=== PATIENT | male | born 1950 | race Caucasian/White ===

== ENCOUNTER 2018-08-28 20:03 | Observation (INO) | payer OTHER ==
--- NOTE | 2018-08-28 20:40 | RAD REPORT ---
EXAM DESCRIPTION: CT - CTHCSPWOC - 08/28/2018 8:18 pm CLINICAL HISTORY: Headache, head and neck injury COMPARISON: None. TECHNIQUE: Axial 5 mm thick images of the head were obtained. Axial 2 mm thick images of the cervic al spine were obtained with sagittal and coronal reconstruction images generated and reviewed. All CT scans are performed using dose optimization technique as appropriate and may include automated exposure control or mA/KV adjustment according to patient size. FINDINGS: No intracranial hemorrhage, mass, edema or acute intracranial finding. No suspicion for acute infarct ion. Atrophy and chronic ischemic changes are minimal. Ventricles are normal. Mastoid air cells and p aranasal sinuses are clear. No globe or orbit abnormality seen. Posterior scalp hematoma is present. Cervical body height and alignment are normal. C4-5 and C5-6 disc space narrowing present. Left russell inal encroachment at C2-3 from facet hypertrophy. Significant left C3-4 foraminal stenosis from facet hypertrophy. Bilateral C4-5 and C5-6 foraminal encroachment. Right central canal spurring at this le silvana causes stenosis of the right lateral central canal. No fracture or acute bony abnormality. Centra l canal detail is inherently limited. No paraspinal mass or hematoma. IMPRESSION: No hemorrhage, edema or acute intracranial finding. Patient has a posterior scalp hemato ma with underlying bone intact. Cervical spine degenerative changes are present with no fracture or acute finding. Spinal stenosis suspected at C5-6 with multilevel foraminal stenosis.
[2018-08-28 20:44] LABS: Urine Blood NEGATIVE (NEG); Urine Glucose NEGATIVE (NEG); Urine Protein NEGATIVE (NEG); Urine Specific Gravity 1.005 (1.005-1.030); Urine pH 6.5 (5.0-7.0)
[2018-08-28] MEDS ORDERED: THIAMINE 200 MG/2 ML INJ ONE (20:44)
[2018-08-28] MEDS ORDERED: MAGNESIUM SULFATE 1 gm IVPB 1 GM/100 ML BAG IV ONE (20:45)
[2018-08-28] MEDS ORDERED: TETANUS & DIPHTHERIA TOX,ADULT 0.5 ML VIAL ONE (20:45)
[2018-08-28] MEDS ORDERED: NA CHLORIDE 0.9% 1,000 ML ONE (20:45)
[2018-08-28 20:58] LABS: Absolute Lymphocytes (CBC) 1.4 K/uL (0.7-4.9); Absolute Monocytes 0.7 K/uL (0.1-1.3); Absolute Neutrophil 3.7 K/uL (1.8-8.0); Basophils % 0.9 % (0-1.3); Eosinophils % 1.8 % (0-4.4); Hematocrit 35.4 % (39.6-49.0); Lymphocytes % 22.9 % (15.3-44.8); MPV 7.4 fL (7.6-11.3); Monocytes % 11.2 % (3.3-12.3); RBC Red Blood Cell Count 3.71 M/uL (4.33-5.43)
[2018-08-28 21:02] LABS: Protime INR 0.96
[2018-08-28 21:04] LABS: Barbiturates NEGATIVE (NEGATIVE); Benzodiazepines NEGATIVE (NEGATIVE); Cocaine NEGATIVE (NEGATIVE); METHAMPHETAM NEGATIVE (NEGATIVE); Methadone NEGATIVE (NEGATIVE); Opiates NEGATIVE (NEGATIVE); Phencyclidine NEGATIVE (NEGATIVE); THC Cannibis NEGATIVE (NEGATIVE)
[2018-08-28 21:27] LABS: ALT/SGPT 52 U/L (12-78); AST/SGOT 33 U/L (15-37); Alkaline Phosphatase 59 U/L (45-117); BUN Blood Urea Nitrogen 10 mg/dL (7-18); Bicarbonate 28 mmol/L (21-32); Bilirubin Direct 0.2 mg/dL (0-0.2); Bilirubin Total 0.4 mg/dL (0.2-1.0); Glucose Level 106 mg/dL (74-106); NT PRO-BNP 548 pg/mL (<125); Potassium 4.1 mmol/L (3.5-5.1); Protein, Total 6.9 g/dL (6.4-8.2); Sodium Level 124 mmol/L (136-145); Troponin (Emerg Dept Use Only) < 0.02 ng/mL (0.0-0.045)
--- NOTE | 2018-08-28 21:48 | ER ---
Nurse's Notes [facility] Name: Catalino Montes Age: 67 yrs Sex: Male : 1950 Arrival Date: 08/28/2018 Time: 20:05 Bed 7 Private MD: Diagnosis: Fall due to bumping against object;Superficial injury of head;Alcohol abuse with intoxication;Alcohol abuse;Hypo-osmolality and hyponatremia Presentation: 08/28 20:05 Acuity: ELLIOTT 2 aa1 20:05 Method Of Arrival: EMS: [facility] aa1 20:05 Presenting complaint: Patient states: he was walking out from [employer] and tripped on aa1 the curb causing him to fall and hit the back of his head on the concrete. Bystanders report + LOC. Denies use of blood thinners. Denies N/V. Denies pain or any other injury. Hematoma noted to back of head with bleeding controlled. A\T\Ox4. Reports he has had about 5-6 beers this evening. Transition of care: patient was not received from another setting of care. Onset of symptoms was August 28, 2018. Risk Assessment: Do you want to hurt yourself or someone else? Patient reports no desire to harm self or others. Initial Sepsis Screen: Does the patient meet any 2 criteria? No. Patient's initial sepsis screen is negative. Does the patient have a suspected source of infection? No. Patient's initial sepsis screen is negative. Care prior to arrival: Glucose check: 130. 20:24 Mechanism of Injury: Fall from standing position. Trauma event details: Injury occurred lp1 in the [facility], Injury occurred: in a public building. Injury occurred: August 28, 2018. Trauma Activation: Alert Physician: ED Physician; Name: Dr. Harris; Notified At: 19:58; Arrived At: 19:58 Physician: General Surgeon; Name: N/A; Notified At: 19:58; Arrived At: Physician: Radiology; Name: Corey Bautista Kathy; Notified At: 19:58; Arrived At: 20:00 Physician: Respiratory; Name: Samir; Notified At: 19:58; Arrived At: 20:03 Physician: Lab; Name: N/A; Notified At: 19:58; Arrived At: Historical: - Allergies: 23:07 No Known Allergies; aa1 - Home Meds: 20:16 losartan oral oral [Active]; unknown BP med [Active]; unknown diabetes med [Active]; aa1 - PMHx: 20:16 Diabetes - NIDDM; High Cholesterol; Hypertension; GERD; aa1 - PSHx: 20:16 None; aa1 - Immunization history:: Last tetanus immunization: unknown. - Social history:: Smoking status: Patient/guardian denies using tobacco. - Immunization history: Last tetanus immunization: unknown. - Ebola Screening: : No symptoms or risks identified at this time. - Family history:: not pertinent. Screenin:05 Abuse screen: Denies threats or abuse. Denies injuries from another. Nutritional aa1 screening: No deficits noted. Tuberculosis screening: No symptoms or risk factors identified. Fall Risk Fall in past 12 months (25 points). Primary Survey: 20:05 NO uncontrolled hemorrhage observed. A: The patient is alert. Airway: patent, No aa1 supplemental oxygen in use on arrival. Oral cavity: clear. Breathing/Chest: Respiratory pattern: regular, Respiratory effort: spontaneous, unlabored, Breath sounds: clear, bilaterally. Chest inspection: symmetrical rise and fall of the chest. Circulation: Heart tones present. Pulses: palpable right radial artery and left radial artery. Skin color: pink, Skin temperature: warm. Disability Alert. Exposure/Environment: All clothing and personal items were removed. Forensic evidence collection is not deemed to be indicated at this time. Items placed in patient belonging bag. There is no evidence of uncontrolled external bleeding. Obvious injury(ies) are noted at this time: hematoma noted to back of head with no active bleeding noted A warming method has been applied: A warm blanket has been provided to the patient. 21:05 Reassessment Airway Airway Patent Breathing/Chest Respiratory pattern Regular aa1 Respiratory effort Spontaneous Unlabored Breath sounds Clear Chest inspection Symmetrical Circulation [place] Level Temperature Warm Disability Alert. Secondary Survey: 20:05 HEENT: Head Other hematoma noted to back of head. Gastrointestinal: No deficits noted. aa1 : No signs and/or symptoms were reported regarding the genitourinary system. Musculoskeletal: No signs and/or symptoms reported regarding the musculoskeletal system. Assessment: 20:07 General: Appears in no apparent distress. comfortable, Behavior is calm, cooperative, aa1 appropriate for age. Pain: Denies pain. Neuro: Level of Consciousness is awake, alert, obeys commands, Oriented to person, place, time, situation, Moves all extremities. Speech is normal, Pupils are PERRLA, Denies blurred vision dizziness, headache diplopia. Cardiovascular: Heart tones S1 S2 present Rhythm is regular. Respiratory: Airway is patent Respiratory effort is even, unlabored, Respiratory pattern is regular, symmetrical, Breath sounds are clear bilaterally. GI: No signs and/or symptoms were reported involving the gastrointestinal system. Abd is soft and non tender X 4 quads. : No signs and/or symptoms were reported regarding the genitourinary system. EENT: No signs and/or symptoms were reported regarding the EENT system. Derm: Skin is intact, is healthy with good turgor, Skin is pink, warm \T\ dry. Musculoskeletal: Circulation, motion, and sensation intact. Capillary refill < 3 seconds, Range of motion: intact in all extremities. Injury Description: Head injury sustained to scalp is closed, had loss of consciousness, was sustained 30-60 minutes ago. 20:28 Reassessment: Patient appears in no apparent distress at this time. Patient is alert, aa1 oriented x 3, equal unlabored respirations, skin warm/dry/pink. Pt back from CT. 21:30 Reassessment: Patient appears in no apparent distress at this time. Patient and/or aa1 family updated on plan of care and expected duration. Pain level reassessed. Patient is alert, oriented x 3, equal unlabored respirations, skin warm/dry/pink. Awaiting provider reassessment. 22:57 Reassessment: Patient appears in no apparent distress at this time. Patient and/or aa1 family updated on plan of care and expected duration. Pain level reassessed. Patient is alert, oriented x 3, equal unlabored respirations, skin warm/dry/pink. Report given to Patrick Olivia RN. Vital Signs: 20:05 BP 165 / 105; Pulse 69; Resp 18; Temp 97.8; Pulse Ox 100% on R/A; Weight 101.15 kg; aa1 Height 5 ft. 10 in. (177.80 cm); Pain 0/10; 21:00 BP 134 / 80; Pulse 65; Resp 18; Temp 97.9; Pulse Ox 99% on R/A; Pain 0/10; aa1 22:00 BP 124 / 63; Pulse 70; Resp 18; Pulse Ox 100% on R/A; Pain 0/10; aa1 22:58 BP 120 / 66; Pulse 65; Resp 16; Temp 98.0; Pulse Ox 99% on R/A; Pain 0/10; aa1 20:05 Body Mass Index 32.00 (101.15 kg, 177.80 cm) aa1 Houston Coma Score: 20:05 Eye Response: spontaneous(4). Verbal Response: oriented(5). Motor Response: obeys aa1 commands(6). Total: 15. Trauma Score (Adult): 20:05 Eye Response: spontaneous(1); Verbal Response: oriented(1); Motor Response: obeys aa1 commands(2); Systolic BP: > 89 mm Hg(4); Respiratory Rate: 10 to 29 per min(4); Houston Score: 15; Trauma Score: 12 21:00 Eye Response: spontaneous(1); Verbal Response: oriented(1); Motor Response: obeys aa1 commands(2); Systolic BP: > 89 mm Hg(4); Respiratory Rate: 10 to 29 per min(4); Jaylon Score: 15; Trauma Score: 12 22:00 Eye Response: spontaneous(1); Verbal Response: oriented(1); Motor Response: obeys aa1 commands(2); Systolic BP: > 89 mm Hg(4); Respiratory Rate: 10 to 29 per min(4); Houston Score: 15; Trauma Score: 12 22:58 Eye Response: spontaneous(1); Verbal Response: oriented(1); Motor Response: obeys aa1 commands(2); Systolic BP: > 89 mm Hg(4); Respiratory Rate: 10 to 29 per min(4); Houston Score: 15; Trauma Score: 12 ED Course: 20:00 Patient maintains SpO2 saturation greater than 95% on room air. lp1 20:05 Patient arrived in ED. al2 20:05 Patient has correct armband on for positive identification. Placed in gown. Bed in low aa1 position. Call light in reach. Side rails up X2. Pulse ox on. NIBP on. Warm blanket given. 20:05 Arm band placed on left wrist. Patient placed in an exam room, on a stretcher. aa1 20:05 Thermoregulation: warm blanket given to patient. aa1 20:12 Homa Farias RN is Primary Nurse. aa1 20:[address] via stretcher. nj 20:18 CT Head C Spine In Process Unspecified. EDMS 20:19 CT completed. Patient tolerated procedure well. Patient moved back from CT. nj 20:19 Triage completed. aa1 20:21 Hector Harris MD is Attending Physician. ailin 20:44 Initial lab(s) drawn, by ED staff, sent to lab. Inserted saline lock: 20 gauge in left aa1 antecubital area, using aseptic technique. ,using aseptic technique. by arjun Almodovar Blood collected. 21:47 Breezy Guido MD is Hospitalizing Provider. ailin 22:06 No provider procedures requiring assistance completed. Patient admitted, IV remains in aa1 place. 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 Exp: aa1 08/16/2020. Lot #: [id number]. } Route: IM; Site: right deltoid; 21:51 Follow up: Response: No adverse reaction aa1 20:44 Drug: Magnesium Sulfate 1 grams Route: IVPB; Infused Over: 1 hrs; Site: left aa1 antecubital; 21:50 Follow up: IV Status: Completed infusion aa1 Intake: 21:49 IV: 1000ml (IV Fluid); Total: 1000ml. aa1 Output: 20:15 Urine: 850ml (Voided); Total: 850ml. aa1 21:49 Urine: 600ml (Voided); Total: 1450ml. aa1 Outcome: 21:48 Decision to Hospitalize by Provider. ailin 23:07 Admitted to Med/surg accompanied by [facility], via stretcher, room 229, with chart, Report aa1 called to Patrick Olivia RN 23:07 Condition: stable 23:07 Discharge instructions given to patient, family, Instructed on the need for admit, Demonstrated understanding of instructions. 23:07 Patient's length of stay was not longer than 2 hours. 23:10 Patient left the ED. aa1 Signatures: Dispatcher [employer] EDMS Homa Farias RN RN aa1 Hector Harris MD MD cha Pena, Laura, RN RN lp1 Emerson Sosa, Ciara gambino Corrections: (The following items were deleted from the chart) 20: 02:05 BP 165 / 105; Pulse 69bpm; Resp 18bpm; Pulse Ox 100% RA; Temp 97.8F; 101.15 kg; aa1 Height 5 ft. 10 in.; BMI: 32.0; Pain 0/10; aa1 02:05 Presenting complaint: Patient states: he was walking out from [employer] and aa1 tripped on the curb causing him to fall and hit the back of his head on the concrete. Bystanders report + LOC. Denies use of blood thinners. Denies N/V. Denies pain or any other injury. Hematoma noted to back of head with bleeding controlled. A\T\Ox4. Reports he has had about 5-6 beers this evening aa1 : 02:05 Transition of care: patient was not received from another setting of care. aa1 aa08 17: 02:05 Onset of symptoms was August 28, 2018 aa1 aa08 17: 02:05 Risk Assessment: Do you want to hurt yourself or someone else? Patient reports no aa1 desire to harm self or others. aa 02:05 Initial Sepsis Screen: Does the patient meet any 2 criteria? No. Patient's aa1 initial sepsis screen is negative. Does the patient have a suspected source of infection? No. Patient's initial sepsis screen is negative. aa 02:05 Care prior to arrival: Glucose check: 130 aa aa 02:05 Method Of Arrival: EMS: [facility] aa1 02:05 Acuity: ELLIOTT 2 aa1 02:05 Arm band placed on left wrist. Patient placed in an exam room, on a stretcher, aa1aa1 23:07 20:16 Allergies: Unable to obtain; aa1 aa1
--- NOTE | 2018-08-28 21:48 | EDPHYS ---
Physician Documentation [facility] Name: Catalino Montes Age: 67 yrs Sex: Male : 1950 Arrival Date: 08/28/2018 Time: 20:05 Bed 7 Private MD: ED Physician Hector Harris HPI: 08/28 20:30 This 67 yrs old Male presents to ER via EMS with complaints of Fall Injury. ailin 20:30 Details of fall: The patient fell from an upright position, while walking. Onset: The ailin symptoms/episode began/occurred just prior to arrival. Associated injuries: The patient sustained injury to the head. Severity of symptoms: At their worst the symptoms were mild, in the emergency department the symptoms are unchanged. The patient has experienced similar episodes in the past, several times. Historical: - Allergies: 23:07 No Known Allergies; aa1 - Home Meds: 20:16 losartan oral oral [Active]; unknown BP med [Active]; unknown diabetes med [Active]; aa1 - PMHx: 20:16 Diabetes - NIDDM; High Cholesterol; Hypertension; GERD; aa1 - PSHx: 20:16 None; aa1 - Immunization history:: Last tetanus immunization: unknown. - Social history:: Smoking status: Patient/guardian denies using tobacco. - Immunization history: Last tetanus immunization: unknown. - Ebola Screening: : No symptoms or risks identified at this time. - Family history:: not pertinent. ROS: 20:30 Constitutional: Negative for fever, chills, and weight loss, Eyes: Negative for injury, ailin pain, redness, and discharge, ENT: Negative for injury, pain, and discharge, Neck: Negative for injury, pain, and swelling, Cardiovascular: Negative for chest pain, palpitations, and edema, Respiratory: Negative for shortness of breath, cough, wheezing, and pleuritic chest pain, Abdomen/GI: Negative for abdominal pain, nausea, vomiting, diarrhea, and constipation, Back: Negative for injury and pain, : Negative for injury, bleeding, discharge, and swelling, MS/Extremity: Negative for injury and deformity, Skin: Negative for injury, rash, and discoloration, Psych: Negative for depression, anxiety, suicide ideation, homicidal ideation, and hallucinations, Allergy/Immunology: Negative for hives, rash, and allergies, Endocrine: Negative for neck swelling, polydipsia, polyuria, polyphagia, and marked weight changes. 20:30 Neuro: Positive for headache, of the left parietal area, right parietal area, left side of the back of head and right side of the back of head. Exam: 20:30 Constitutional: This is a well developed, well nourished patient who is awake, alert, ailin and in no acute distress. Eyes: Pupils equal round and reactive to light, extra-ocular motions intact. Lids and lashes normal. Conjunctiva and sclera are non-icteric and not injected. Cornea within normal limits. Periorbital areas with no swelling, redness, or edema. ENT: Nares patent. No nasal discharge, no septal abnormalities noted. Tympanic membranes are normal and external auditory canals are clear. Oropharynx with no redness, swelling, or masses, exudates, or evidence of obstruction, uvula midline. Mucous membranes moist. Neck: Trachea midline, no thyromegaly or masses palpated, and no cervical lymphadenopathy. Supple, full range of motion without nuchal rigidity, or vertebral point tenderness. No Meningismus. Chest/axilla: Normal chest wall appearance and motion. Nontender with no deformity. No lesions are appreciated. Cardiovascular: Regular rate and rhythm with a normal S1 and S2. No gallops, murmurs, or rubs. Normal PMI, no JVD. No pulse deficits. Respiratory: Lungs have equal breath sounds bilaterally, clear to auscultation and percussion. No rales, rhonchi or wheezes noted. No increased work of breathing, no retractions or nasal flaring. Abdomen/GI: Soft, non-tender, with normal bowel sounds. No distension or tympany. No guarding or rebound. No evidence of tenderness throughout. Back: No spinal tenderness. No costovertebral tenderness. Full range of motion. Male : Normal genitalia with no discharge or lesions. Skin: Warm, dry with normal turgor. Normal color with no rashes, no lesions, and no evidence of cellulitis. MS/ Extremity: Pulses equal, no cyanosis. Neurovascular intact. Full, normal range of motion. Neuro: Awake and alert, GCS 15, oriented to person, place, time, and situation. Cranial nerves II-XII grossly intact. Motor strength 5/5 in all extremities. Sensory grossly intact. Cerebellar exam normal. Normal gait. Psych: Awake, alert, with orientation to person, place and time. Behavior, mood, and affect are within normal limits. 20:30 Head/face: Noted is swelling, tenderness, that is mild, of the left side of the back of head and right side of the back of head. Vital Signs: 20:05 BP 165 / 105; Pulse 69; Resp 18; Temp 97.8; Pulse Ox 100% on R/A; Weight 101.15 kg; aa1 Height 5 ft. 10 in. (177.80 cm); Pain 0/10; 21:00 BP 134 / 80; Pulse 65; Resp 18; Temp 97.9; Pulse Ox 99% on R/A; Pain 0/10; aa1 22:00 BP 124 / 63; Pulse 70; Resp 18; Pulse Ox 100% on R/A; Pain 0/10; aa1 22:58 BP 120 / 66; Pulse 65; Resp 16; Temp 98.0; Pulse Ox 99% on R/A; Pain 0/10; aa1 20:05 Body Mass Index 32.00 (101.15 kg, 177.80 cm) aa1 Jaylon Coma Score: 20:05 Eye Response: spontaneous(4). Verbal Response: oriented(5). Motor Response: obeys aa1 commands(6). Total: 15. Trauma Score (Adult): 20:05 Eye Response: spontaneous(1); Verbal Response: oriented(1); Motor Response: obeys aa1 commands(2); Systolic BP: > 89 mm Hg(4); Respiratory Rate: 10 to 29 per min(4); Jaylon Score: 15; Trauma Score: 12 21:00 Eye Response: spontaneous(1); Verbal Response: oriented(1); Motor Response: obeys aa1 commands(2); Systolic BP: > 89 mm Hg(4); Respiratory Rate: 10 to 29 per min(4); Jaylon Score: 15; Trauma Score: 12 22:00 Eye Response: spontaneous(1); Verbal Response: oriented(1); Motor Response: obeys aa1 commands(2); Systolic BP: > 89 mm Hg(4); Respiratory Rate: 10 to 29 per min(4); Jaylon Score: 15; Trauma Score: 12 22:58 Eye Response: spontaneous(1); Verbal Response: oriented(1); Motor Response: obeys aa1 commands(2); Systolic BP: > 89 mm Hg(4); Respiratory Rate: 10 to 29 per min(4); Harvey Score: 15; Trauma Score: 12 MDM: 20:21 Patient medically screened. [facility] 20:33 Data reviewed: vital signs, nurses notes, lab test result(s), EKG, radiologic studies, [facility] CT scan. 08/28 20:20 Order name: Urine Dipstick--Ancillary (enter results); Complete Time: 21:05 08/28 20:30 Order name: Acetaminophen; Complete Time: :45 [facility] 08/28 20:30 Order name: Basic Metabolic Panel; Complete Time: :45 [facility] 08/28 20:30 Order name: CBC with Diff; Complete Time: :45 [facility] 08/28 20:30 Order name: ETOH Level; Complete Time: :45 [facility] 08/28 20:30 Order name: Hepatic Function; Complete Time: :45 [facility] 08/28 20:30 Order name: PT-INR; Complete Time: :45 [facility] 08/28 20:30 Order name: Ptt, Activated; Complete Time: 21:45 [facility] 08/28 20:30 Order name: Salicylate; Complete Time: :45 [facility] 08/28 20:30 Order name: Urine Drug Screen; Complete Time: :45 [facility] 08/28 20:30 Order name: BNP; Complete Time: :45 [facility] 08/28 20:30 Order name: Troponin (emerg Dept Use Only); Complete Time: 21:45 [facility] 08/28 21:47 Order name: Urine Osmolality [facility] 08/28 21:47 Order name: Urine Sodium Random [facility] 08/28 20:13 Order name: CT Head C Spine; Complete Time: 21:05 1 08/28 20:30 Order name: EKG; Complete Time: 20:31 [facility] 08/28 20:30 Order name: EKG - Nurse/Tech; Complete Time: 21:51 [facility] 08/28 20:30 Order name: IV Saline Lock; Complete Time: 20:44 [facility] 08/28 20:30 Order name: Labs collected and sent; Complete Time: 20:44 [facility] 08/28 20:30 Order name: Urine Dipstick-Ancillary (obtain specimen); Complete Time: 20:33 [facility] 08/28 20:33 Order name: Ice pack [facility] 08/28 21:47 Order name: Osmolality, Serum [facility] Administered Medications: 20:43 Drug: NS 0.9% 1000 ml Route: IV; Rate: 1 bolus; Site: left antecubital; aa1 21:50 Follow up: IV Status: Completed infusion aa1 20:43 Drug: Thiamine 100 mg Route: IV; Rate: bolus; Site: left antecubital; aa1 20:55 Follow up: IV Status: Completed infusion aa1 20:43 Drug: Tetanus-Diphtheria Toxoid Adult 0.5 ml {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 Exp: aa1 08/16/2020. Lot #: [id number]. } Route: IM; Site: right deltoid; 21:51 Follow up: Response: No adverse reaction aa1 20:44 Drug: Magnesium Sulfate 1 grams Route: IVPB; Infused Over: 1 hrs; Site: left aa1 antecubital; 21:50 Follow up: IV Status: Completed infusion aa1 Disposition: 08/28/18 21:48 Hospitalization ordered by Breezy Guido for Observation. Preliminary diagnosis are Fall due to bumping against object, Superficial injury of head, Alcohol abuse with intoxication, Alcohol abuse, Hypo-osmolality and hyponatremia. - Bed requested for Telemetry/MedSurg (observation). - Status is Observation. aa1 - Condition is Fair. - Problem is new. - Symptoms have improved. UTI on Admission? No Signatures: Dispatcher [employer] EDMS Neris Rausch RN RN mw Kern, Alissa, RN RN aaHector Villanueva MD MD cha Corrections: (The following items were deleted from the chart) 22:06 21:48 Hospitalization Ordered by Breezy Guido MD for Observation. Preliminary diagnosis mw is Fall due to bumping against object; Superficial injury of head; Alcohol abuse with intoxication; Alcohol abuse; Hypo-osmolality and hyponatremia. Bed requested for Telemetry/MedSurg (observation). Status is Observation. Condition is Fair. Problem is new. Symptoms have improved. UTI on Admission? No. [facility] 23:07 20:16 Allergies: Unable to obtain; aa1 aa1 23:10 22:06 08/28/2018 21:48 Hospitalization Ordered by Breezy Guido MD for Observation. aa1 Preliminary diagnosis is Fall due to bumping against object; Superficial injury of head; Alcohol abuse with intoxication; Alcohol abuse; Hypo-osmolality and hyponatremia. Bed requested for Telemetry/MedSurg (observation). Status is Observation. Condition is Fair. Problem is new. Symptoms have improved. UTI on Admission? No. mw
[2018-08-28] MEDS ORDERED: ACETAMINOPHEN 500 MG TAB PO PRN (23:24)
[2018-08-28] MEDS ORDERED: ONDANSETRON 4 MG/2 ML VIAL IV PRN (23:24)
[2018-08-29 05:27] LABS: Absolute Lymphocytes (CBC) 1.1 K/uL (0.7-4.9); Absolute Monocytes 0.4 K/uL (0.1-1.3); Absolute Neutrophil 2.4 K/uL (1.8-8.0); Basophils % 0.7 % (0-1.3); Eosinophils % 1.8 % (0-4.4); Hematocrit 31.5 % (39.6-49.0); Lymphocytes % 27.6 % (15.3-44.8); MPV 7.8 fL (7.6-11.3); Monocytes % 10.6 % (3.3-12.3); RBC Red Blood Cell Count 3.35 M/uL (4.33-5.43)
[2018-08-29 05:46] LABS: BUN Blood Urea Nitrogen 8 mg/dL (7-18); Bicarbonate 25 mmol/L (21-32); Glucose Level 77 mg/dL (74-106); Potassium 3.6 mmol/L (3.5-5.1); Sodium Level 132 mmol/L (136-145)
--- NOTE | 2018-08-29 08:14 | RAD REPORT ---
EXAM DESCRIPTION: RAD - Chest Single View - 08/29/2018 7:04 am CLINICAL HISTORY: Chest pain COMPARISON: None. TECHNIQUE: AP portable chest image was obtained 0700 hours . FINDINGS: Lungs are clear. Heart and vasculature are normal. No measurable pleural effusion and no p neumothorax. No acute bony abnormality seen. No acute aortic findings suspected. IMPRESSION: No acute cardiopulmonary process.
[2018-08-29] MEDS ORDERED: FOLIC ACID 1 MG, MULTIVITAMINS INJ 10 ML, THIAMINE HCL 100 MG in NA CHLORIDE 0.9% 1,000 ML IV SCH (09:00)
[2018-08-29] MEDS ORDERED: FAMOTIDINE 20 MG/2 ML VIAL IV SCH (09:00)
--- NOTE | 2018-08-29 14:39 | P.SSS ---
Patient History Date of Service: 08/29/18 Reason for admission: FELL DOWN History of Present Illness: MR. MCMANUS FELL AND HIT HIS HEAD. HIS ALOCOHOL LEVEL WAS HIGH BUT HE SAID HE DRANK ONLY 4 BEERS. HE IS STABLE NOW. HAS NO SYMPTOMS AND WANTS TO GO HOME. HIS SODIUM WAS LOW AT 124 AND IS NOW NORMAL. Allergies No Known Allergies Allergy (Verified 08/28/18 23:41) Home Medications: Atorvastatin Calcium 20 mg PO DAILY 08/28/18 Bisoprolol Fumarate [Zebeta] 5 mg PO BEDTIME 08/28/18 Losartan/Hydrochlorothiazide [Losartan-Hctz 100-12.5 mg Tab] 1 each PO DAILY Metformin HCl 1,000 mg PO BID 08/28/18 Pantoprazole [Protonix Tab] 40 mg PO DAILY 08/28/18 Trazodone [Desyrel] 50 mg PO BEDTIME PRN 08/28/18 - Past Medical/Surgical History Has patient received pneumonia vaccine in the past: No Diabetic: Yes -: Diabetes NIDDM -: High Cholesterol -: GERD -: HTN -: Laminectomy - Social History Smoking Status: Former smoker Alcohol use: Yes CD- Drugs: No Caffeine use: No Place of Residence: Home Review of Systems 10-point ROS is otherwise unremarkable General: Weakness Physical Examination - Vital Signs Temperature: 97.9 F Blood Pressure: 175/76 Pulse: 69 Respirations: 18 Pulse Ox (%): 98 - Physical Exam General: Alert, In no apparent distress HEENT: Atraumatic, PERRLA, Mucous membr. moist/pink, EOMI, Sclerae nonicteric Neck: Supple, 2+ carotid pulse no bruit, No LAD, Without JVD or thyroid abnormality Respiratory: Clear to auscultation bilaterally, Normal air movement Cardiovascular: Regular rate/rhythm, Normal S1 S2 Gastrointestinal: Normal bowel sounds, No tenderness Musculoskeletal: No tenderness Integumentary: No rashes Neurological: Normal gait, Normal speech, Normal strength at 5/5 x4 extr, Normal tone, Normal affect Lymphatics: No axilla or inguinal lymphadenopathy - Studies Laboratory Data (last 24 hrs) 08/28/18 20:42: PT 11.3, INR 0.96, APTT 32.1 08/28/18 20:42: WBC 5.9, Hgb 12.1 L, Hct 35.4 L, Plt Count 187 08/28/18 20:42: Sodium 124 L, Potassium 4.1, BUN 10, Creatinine 0.96, Glucose 106, Total Bilirubin 0.4, AST 33, ALT 52, Alkaline Phosphatase 59 - Diagnosis (Problem(s)) (1) Alcohol intoxication Status: Acute Plan: HE HAD FOUR BEERS BUT IS OKAY NOW. HE DOES NOT HAVE DRINKING PROBLEM. (2) Head injury Status: Acute Plan: STABLE. NO INTERNAL INJURY. STABLE TO GO HOME. HIS DM HTN, CHOL IS TAKEN CARE BY ME. - Disposition Disposition: ROUTINE DISCHARGE Diet: ADA
--- NOTE | 2018-08-29 16:15 | EKG ---
Test Date: 2018-08-29 Test Time: 08:41:28 [address] [place]: ASHLEY MEASUREMENT RESULTS: Intervals: Rate: 71 [place]: 214 QRSD: 86 QT: 402 QTc: 436 [place]: P: 65 [place]: 214 QRS: 22 T: 68 INTERPRETIVE STATEMENTS: Sinus rhythm with 1st degree AV block Otherwise normal ECG Compared to ECG 08/28/2018 20:53:57 First degree AV block now present Electronically Signed On 08-29-18 16:15:25 MECHANICAL SPREADER OPERATOR by Odell Sifuentes
--- NOTE | 2018-08-29 16:19 | EKG ---
Test Date: 2018-08-28 Test Time: 20:53:57 Director Of Sustainability: GAURAV MEASUREMENT RESULTS: Intervals: Rate: 65 WI: 200 QRSD: 88 QT: 424 QTc: 440 [place]: P: 17 WI: 200 QRS: -14 T: 50 INTERPRETIVE STATEMENTS: Normal sinus rhythm Normal ECG Compared to ECG 09/07/1992 10:46:00 No significant changes Electronically Signed On 08-29-18 16:17:54 CONSULTANT DIETITIAN by Odell Sifuentes
== END 2018-08-29 12:28 | disposition home or self-care (01) ==
LOC: ER 20:03 → ERHOLD 21:50 → 2ND 23:02
PROVIDERS: ADMIT Internal Medicine; ATTEND Internal Medicine
DX: S09.90XA Unspecified injury of head, initial encounter (principal); F10.129 Alcohol abuse with intoxication, unspecified; W18.30XA Fall on same level, unspecified, initial encounter; Y92.89 Other specified places as the place of occurrence of the external cause; E11.9 Type 2 diabetes mellitus without complications; E78.00 Pure hypercholesterolemia, unspecified; I10 Essential (primary) hypertension; Z87.891 Personal history of nicotine dependence; Z23 Encounter for immunization
CPT/HCPCS: 36415; 70450; 71045; 72125; 80048 ×2; 80076; 80307 ×8; 80320; 80329 ×2; 81003; 83880; 83930; 83935; 84300; 84484 ×3; 85025 ×2; 85610; 85730; 90714; 93005 ×2; 96365; 96375; 99285; G0378 ×2; J2405; J3411 ×2; J3475; J7030 ×2

== ENCOUNTER 2024-02-18 16:45 | Observation (INO) | payer OTHER ==
[2024-02-18 18:07] LABS: Absolute Basophils 0.1 K/uL (0-0.5); Absolute Lymphocytes (CBC) 0.6 K/uL (0.7-4.9); Absolute Monocytes 0.4 K/uL (0.1-1.3); Absolute Neutrophil 6.8 K/uL (1.8-8.0); Basophils % 0.7 % (0-1.3); Eosinophils % 0.5 % (0-4.4); Hematocrit 37.5 % (39.6-49.0); Lymphocytes % 7.3 % (15.3-44.8); MCH 32.5 pg (27.0-35.0); MCHC 34.5 g/dL (32.0-36.0); MCV 94.2 fL (80-100); Monocytes % 5.1 % (3.3-12.3); Neutrophils % 86.4 % (41.7-73.7); Platelets 337 thou/uL (152-406); RBC Red Blood Cell Count 3.99 M/uL (4.33-5.43); Red Cell Distribution Width 13.5 % (12.1-15.2)
[2024-02-18 18:28] LABS: PT Prothrombin Time 11.9 SECONDS (9.4-12.5); PTT, Activated Partial Thromb 33.2 SECONDS (24.3-36.9); Protime INR 1.06
[2024-02-18 18:54] LABS: Albumin 3.9 g/dL (3.4-5.0); Albumin/Globulin Ratio 1.1 (1.1-1.8); Anion Gap 12.1 mEq/L (5.0-15.0); Bilirubin Direct 0.3 mg/dL (0-0.2); Bilirubin Indirect, Calculated 0.7 mg/dL (0.2-0.8); Globulin 3.7 g/dL (2.3-3.5); Magnesium 1.7 mg/dL (1.6-2.4); Potassium 4.1 mEq/L (3.5-5.1); Protein, Total 7.6 g/dL (6.4-8.2)
[2024-02-18 19:15] LABS: Specific Gravity 1.023 (1.005-1.030); Sqamous Epithelial <5 /HPF (None Seen); Urine Bacteria <20 /HPF (<20); Urine Bilirubin NEGATIVE (Negative); Urine Blood Negative (Negative); Urine Clarity Clear (Clear); Urine Color Yellow (Yellow); Urine Crystals Unidentified Few /HPF (None Seen); Urine Culture Reflex Order NOT NEEDED; Urine Glucose NEGATIVE (Negative); Urine Ketones NEGATIVE (Negative); Urine Microscopic Reflex YN ORDER UMIC; Urine Mucus Slight /HPF (None Seen); Urine Nitrite NEGATIVE (Negative); Urine Protein 1+ (Negative); Urine RBC <5 /HPF (None Seen); Urine Urobilinogen 2+ (Normal); Urine WBC <5 /HPF (<5)
[2024-02-18 19:28] LABS: MA/CREAT RATIO 51.2 (< 30.0); UR MICROALBUMIN 10.5 mg/dL (< 1.9)
[2024-02-18 20:11] LABS: Blood Morphology Comment NOT SEEN (NOT SEEN); Platelet Estimate ADEQ; White Blood Cell Scan OK (OK)
[2024-02-18] MEDS ORDERED: ACETAMINOPHEN 325 MG TABLET PO PRN (22:02)
[2024-02-18] MEDS ORDERED: DIPHENHYDRAMINE 25 MG TAB/CAP PO PRN (22:04)
[2024-02-18] MEDS ORDERED: ONDANSETRON 4 MG (ODT) TAB PO PRN (22:10)
[2024-02-18] MEDS ORDERED: LOPERAMIDE HCL 2 MG CAPSULE PO PRN (22:10)
[2024-02-18] MEDS ORDERED: POLYETHYL GLY 3350 17 GM/DOSE PO PRN (22:11)
[2024-02-18] MEDS: MAGNESIUM SULFATE 1 gm IVPB 1 GM/100 ML BAG IV ONE (22:27)
[2024-02-18] MEDS: NACHLORIDE 0.45% 1,000 ML IV SCH (22:27)
[2024-02-18] MEDS: TRAZODONE 50 MG TABLET PO SCH (22:27)
--- NOTE | 2024-02-18 23:51 | RAD REPORT ---
EXAM DESCRIPTION: MRI - Brain Wo Cont - 02/18/2024 7:57 pm CLINICAL HISTORY: AMS COMPARISON: None available TECHNIQUE: Multiplanar multisequence MRI of the brain performed without IV contrast. FINDINGS: No evidence of acute infarct or other diffusion signal abnormality. No evidence of acute intracranial hemorrhage or abnormal extra-axial fluid collections. Mild diffuse parenchymal volume loss. Ventricular caliber otherwise within normal for age. Midline st ructures are unremarkable. Subtle periventricular and deep white matter T2/FLAIR hyperintensities, nonspecific, but suggestive o f chronic small vessel ischemic changes. Focus of susceptibility signal abnormality in the left basal ganglia region, may relate to a remote m icrohemorrhage or developmental venous anomaly. No mass effect or midline shift. Major vascular flow voids are preserved. Mastoid air cells and paranasal sinuses are clear. IMPRESSION: No acute intracranial process. No evidence of ventriculomegaly or mass effect. Mild periventricular and deep white matter T2 hyperintensities, nonspecific, but suggestive of chroni c small vessel ischemic changes.
--- NOTE | 2024-02-18 23:59 | RAD REPORT ---
EXAM DESCRIPTION: RAD - Chest Pa And Lat (2 Views) - 02/18/2024 6:54 pm CLINICAL HISTORY: admission COMPARISON: Chest Single View dated 08/29/2018; Ribs Right dated 02/11/2024 TECHNIQUE: PA and lateral views of the chest were obtained. FINDINGS: The lungs are clear. Heart size is normal and central vasculature is within normal limits. No pleural effusion or pneumothorax seen. No acute bony finding noted. Stable multiple right lateral rib deformities. IMPRESSION: No acute cardiopulmonary process. Stable multiple right lateral rib deformities.
[2024-02-19 06:10] LABS: Anion Gap 10.1 mEq/L (5.0-15.0); Potassium 4.1 mEq/L (3.5-5.1)
[2024-02-19] MEDS ORDERED: ONDANSETRON 4 MG/2 ML VIAL IV PRN (07:15)
[2024-02-19] MEDS: INSULIN REGULAR (HUMAN) 100 UNIT/ML SQ SCH (07:30)
[2024-02-19] MEDS: MULTIVITAMINS IV SCH (08:11)
[2024-02-19] MEDS: ENOXAPARIN 40 MG/0.4 ML SQ SCH (08:11)
[2024-02-19] MEDS: [UNRECOGNIZED DRUG - OTHER] IV SCH (08:11)
[2024-02-19] MEDS: FOLIC ACID IV SCH (08:11)
[2024-02-19] MEDS: THIAMINE HCL IV SCH (08:11)
[2024-02-19] MEDS ORDERED: THIAMINE 200 MG/2 ML INJ IVP SCH (09:00)
[2024-02-19] MEDS ORDERED: ENOXAPARIN 40 MG/0.4 ML SQ SCH (09:00)
--- NOTE | 2024-02-19 22:17 | P.DS ---
Admission Date: 02/18/24 Discharge Date: 02/19/24 Disposition: ROUTINE DISCHARGE Discharge Condition: [facility]IR Hospital Course: KAITLYNN QUIT ALCOHOL SINCE BROKEN RIBS. PER HIM HE USED TO DRINK ABOUT 6 PACKS OF BEER DAILY. SON CLARIFIED THAT IT MAY BE UP TO 15 BEER CANS DAILY. HE IS WEAK. HE DOES NOT HAVE TREMORS. WE DID NOT FIND STROKE ON MRI. LAB IS STABLE. HE WILL TAKE VITAMINS AT HOME AND FU IN OFFICE. I WILL WATCH FOR WITHDRAWAL. Vital Signs/Physical Exam: Temp Pulse Resp BP Pulse Ox 97.8 F 69 17 166/79 H 97 02/19/24 12:00 02/19/24 12:00 02/19/24 12:00 02/19/24 12:00 02/19/24 12:00 Laboratory Data at Discharge: WBC 7.80 thou/uL (4.3-10.9) 02/18/24 17:45 Hgb 13.0 g/dL (13.6-17.9) L 02/18/24 17:45 Hct 37.5 % (39.6-49.0) L 02/18/24 17:45 Plt Count 337 thou/uL (152-406) 02/18/24 17:45 PT 11.9 SECONDS (9.4-12.5) 02/18/24 17:45 INR 1.06 02/18/24 17:45 APTT 33.2 SECONDS (24.3-36.9) 02/18/24 17:45 APTT Cancelled 02/18/24 17:45 Sodium 134 mEq/L (136-145) L 02/19/24 05:30 Potassium 4.1 mEq/L (3.5-5.1) 02/19/24 05:30 BUN 15 mg/dL (7-18) 02/19/24 05:30 Creatinine 0.90 mg/dL (0.70-1.30) 02/19/24 05:30 Glucose 92 mg/dL (74-106) 02/19/24 05:30 Magnesium 2.0 mg/dL (1.6-2.4) 02/19/24 05:30 Total Bilirubin 1.0 mg/dL (0.2-1.0) 02/18/24 17:45 AST 17 U/L (15-37) 02/18/24 17:45 ALT 33 U/L (16-61) 02/18/24 17:45 Alkaline Phosphatase 146 U/L (45-117) H 02/18/24 17:45 Home Medications: Atorvastatin Calcium 20 mg PO BEDTIME 02/18/24 Losartan Potassium 100 mg PO DAILY 02/18/24 Metformin HCl 500 mg PO BID 02/18/24 Montelukast Sodium 10 mg PO DAILY 02/18/24 Tramadol HCl [Ultram] 50 mg PO TID PRN 02/18/24 bisoproloL fumarate [Bisoprolol Fumarate] 5 mg PO DAILY 02/18/24 Followup: Breezy Guido MD [Primary Care Provider] - 1-2 Weeks
[2024-02-20 17:38] VITALS: BP 166/79; TEMP 97.8
[2024-02-20 17:39] VITALS: BMI 29.7
[2024-02-23 12:09] LABS: 1,25 Dihydroxy Vitamin D3 34 pg/mL; Vitamin D 1,25-Dihydroxy Total 34 pg/mL (18-72); Vitamin D,1,25-OH2, D2 <8 pg/mL
== END 2024-02-19 16:14 | disposition home or self-care (01) ==
LOC: 2ND 16:45
PROVIDERS: ADMIT Internal Medicine; ATTEND Internal Medicine
DX: R41.82 Altered mental status, unspecified (principal); R53.1 Weakness; F10.21 Alcohol dependence, in remission; I10 Essential (primary) hypertension
CPT/HCPCS: 87040; 85025; 81001; 80048 ×2; 36415; 82140; 83735 ×2; 84132; 85610; 82947 ×4; 80076; 85730; 82652; 83036; 82570; 82607; 82043; 71046; 70551; 97116; 97161; J3411; J3475; J1650; J7040; G0378 ×3; J2405